=== PATIENT | female | born 1975 | race Two or more races ===

== ENCOUNTER 2021-07-24 07:20 | Outpatient (CLI) | payer OTHER | END 2021-07-24 07:34 | disposition home or self-care (01) | LOC: RX STUDY 07:20 | PROVIDERS: ATTEND Internal Medicine | DX: N20.1 Calculus of ureter (principal) ==

== ENCOUNTER 2021-07-27 09:00 | Outpatient (CLI) | payer OTHER | END 2021-07-27 09:15 | disposition home or self-care (01) | LOC: PPH VACUNA 09:00 | PROVIDERS: ATTEND Emergency Medicine Pediatric Emergency Medicine | DX: Z23 Encounter for immunization (principal) ==